=== PATIENT | female | born 1940 | race African-American/Black ===

== ENCOUNTER → 2020-01-11 | Outpatient (CLI) | payer MEDICARE, MEDICAID ==
[~2020-01-11] MED LIST: ASPIRIN; DIOVAN
== END | disposition home or self-care (01) ==
LOC: LAB 14:31
PROVIDERS: ATTEND Surgery Vascular Surgery
DX: Z01.818 Encounter for other preprocedural examination (principal); Z11.59 Encounter for screening for other viral diseases
CPT/HCPCS: U0003-CS

== ENCOUNTER 2020-01-15 08:51 | Inpatient (IN) | payer MEDICARE, MEDICAID ==
[~2020-01-15] VITALS: Ht 172.7 cm; Wt 84.4 kg
[2020-01-15] VITALS (7 sets, daily range): BP systolic 104–133; BP diastolic 48–67
[2020-01-15] MEDS ORDERED: SOLI10TA MT (09:27)
[2020-01-15 09:55] LABS: CHLORIDE 106 mEq/L (98-107)
[2020-01-15 09:57] LABS: HEMATOCRIT 40.1 % (36.0-48.0); HEMOGLOBIN 13.8 g/dL (12.0-16.0); MEAN CORPUSCULAR HEMOGLOBIN 29.3 pg (28.0-32.0); MEAN CORPUSCULAR VOLUME 85.5 fL (81.0-99.0); PLATELET 182 x1000/uL (130-400); RED BLOOD CELL COUNT 4.69 mill/uL (4.2-5.4); RED CELL DISTRIBUTION WIDTH 14.6 % (11.6-14.6)
[2020-01-15] MEDS ORDERED: MIDAZOLAM HCL 2 MG/2 ML VIAL ONE (10:04)
[2020-01-15] MEDS ORDERED: FENTANYL CITRATE/PF 50MCG/ML 2ML VIAL ONE (10:04)
[2020-01-15] MEDS ORDERED: GENTAMICIN SULF 40MG/ML 2ML VIAL ONE (10:04)
[2020-01-15] MEDS ORDERED: LIDOCAINE HCL 1% 20ML VIAL (Pyxis) INJ ONE (10:04)
[2020-01-15] MEDS ORDERED: GENTAMICIN/NS IRRIGATION 500 ML IR ONE (10:05)
[2020-01-15] MEDS ORDERED: CEFAZOLIN 1000MG PREMIX 50 ML IV ONE (10:06)
[2020-01-15] MEDS ORDERED: HYDROCODONE/ACETAMINOPHEN 5/325MG TABLET PO PRN ×2 (10:15)
[2020-01-15] MEDS ORDERED: ONDANSETRON HCL 4MG/2ML INJ IV PRN (14:15)
[2020-01-15] MEDS ORDERED: ACETAMINOPHEN 325MG TABLET PO PRN (14:15)
[2020-01-16] VITALS (9 sets, daily range): BP systolic 101–138; BP diastolic 49–74
[2020-01-16] MEDS ORDERED: HYDR-4001 PO (12:12)
== END 2020-01-16 15:54 | disposition home or self-care (01) | DRG 244 ==
LOC: CCL 08:51 → 3WST 08:52
PROVIDERS: ADMIT Surgery Vascular Surgery; ATTEND Surgery Vascular Surgery
PROC: 0JH606Z Insertion of Pacemaker, Dual Chamber into Chest Subcutaneous Tissue and Fascia, Open Approach (ICD-10-PCS; principal; 2020-01-15)
PROC: 02H63JZ Insertion of Pacemaker Lead into Right Atrium, Percutaneous Approach (ICD-10-PCS; 2020-01-15)
PROC: 02HK3JZ Insertion of Pacemaker Lead into Right Ventricle, Percutaneous Approach (ICD-10-PCS; 2020-01-15)
DX: I49.5 Sick sinus syndrome (principal); I10 Essential (primary) hypertension; E66.9 Obesity, unspecified; Z68.28 Body mass index [BMI] 28.0-28.9, adult; Z90.710 Acquired absence of both cervix and uterus; Z71.3 Dietary counseling and surveillance; Z79.82 Long term (current) use of aspirin; Z79.899 Other long term (current) drug therapy
CPT/HCPCS: 33208; 36415; 71045; 80048; 85027; C1785; C1893; C1898; J0690; J1580; J2250; J3010; J3490